=== PATIENT | female | born 1995 | race Caucasian/White ===

== ENCOUNTER 2017-03-13 02:01 | Emergency (ER) | payer OTHER ==
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
--- NOTE | 2017-03-13 02:37 | ED ORDER SUMMARY ---
..... Patient: JOHNNY SOTO OrderSheet [facility] VisitID: [id number] [address] [place] [address] 22y, F Registration Date/Time: 03/13/2017 ORDER SHEET Weight: 79.3 kg (stated) Allergies: Penicillins GENERAL ORDERS: MEDICATION ORDERS: Zofran ODT PO 4 mg (NOW) (02:35 03/13/2017 William JOY) (2:40 DDavis R.N.) Carafate PO 20 ml (NOW) (02:35 03/13/2017 William JOY) (2:41 DDavis R.N.) IV FLUIDS: ORDER SHEET NOTES: [Electronically signed by Zachary Hdez R.N. (02:45 03/13/2017)] [Electronically signed by Jamison Hayden MD (22:02 03/14/2017)] [Electronically locked/signed by Zachary Hdez R.N. (02:45 03/13/2017)]
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
--- NOTE | 2017-03-13 02:37 | ED ORDER SUMMARY ---
..... Patient: JOHNNY SOTO OrderSheet [facility] VisitID: [id number] [address] [place] [address] 22y, F Registration Date/Time: 03/13/2017 ORDER SHEET Weight: 79.3 kg (stated) Allergies: Penicillins GENERAL ORDERS: MEDICATION ORDERS: Zofran ODT PO 4 mg (NOW) (02:35 03/13/2017 William JOY) (2:40 DDavis R.N.) Carafate PO 20 ml (NOW) (02:35 03/13/2017 William JOY) (2:41 DDavis R.N.) IV FLUIDS: ORDER SHEET NOTES: [Electronically signed by Zachary Hdez R.N. (02:45 03/13/2017)] [Electronically signed by Jamison Hayden MD (22:02 03/14/2017)] [Electronically locked/signed by Zachary Hdez R.N. (02:45 03/13/2017)]
--- NOTE | 2017-03-14 22:02 | ED MAR SUMMARY ---
..... Medication Administration Record [facility] [address] [place] [address] Patient: JOHNNY SOTO Visit ID: [id number] 22y, F Weight: 79.3 kg Height/Length: 69 in BMI: 25.8 ALLERGIES: Penicillins Given 02:40 03/13/2017 Zachary Hdez REricaN. Medication Administered: ZOFRAN ODT [PO] (ONDANSETRON), Dose: 4 mg Oral Disintegrating Tablets PO. Medication Ordered: Zofran ODT PO 4 mg (NOW). Given 02:41 03/13/2017 Zachary Hdez, REricaN. Medication Administered: CARAFATE [PO] (SUCRALFATE), Dose: 2 gm Oral Suspension PO. Medication Ordered: Carafate PO 20 ml (NOW).
--- NOTE | 2017-03-14 22:02 | ED MED RECONCILIATION SUMMARY ---
Patient: JOHNNY SOTO Medication Reconciliation Report [facility] VisitID: [id number] [address] [place] [address] 22y, F Registration Date/Time: 03/13/2017 Weight: 79.3 kg Height/Length: 69 in. BMI: 25.8 ALLERGIES: Penicillins The patient's Home Medications are listed below: THE FOLLOWING MEDICATIONS NEED TO BE RECONCILED: Vitamins Oral Unknown "iron medicine" The source(s) of the original Home Medication information: Not obtained. The following Medications were given to the patient in the Emergency Department: Zofran ODT [PO] PO 4 mg, administered: 03/13/2017 2:40:00 AM Carafate [PO] PO 2 gm, administered: 03/13/2017 2:41:00 AM The following Medications were prescribed to the patient: Zofran (orally disintegrating tablets) 4 mg: take 1 orally every 6 hours as needed for nausea. Dispense five (5). No refill. -- Jamison Hayden MD Carafate 1 gm tablets: take 1 orally four times daily (1 hour before meals and at bedtime). Dispense sixty (60). No refills. Substitution is permissible. -- Jamison Hayden MD
--- NOTE | 2017-03-14 22:02 | ED MED RECONCILIATION SUMMARY ---
Patient: JOHNNY SOTO Medication Reconciliation Report [facility] VisitID: [id number] [address] [place] [address] 22y, F Registration Date/Time: 03/13/2017 Weight: 79.3 kg Height/Length: 69 in. BMI: 25.8 ALLERGIES: Penicillins The patient's Home Medications are listed below: THE FOLLOWING MEDICATIONS NEED TO BE RECONCILED: Vitamins Oral Unknown "iron medicine" The source(s) of the original Home Medication information: Not obtained. The following Medications were given to the patient in the Emergency Department: Zofran ODT [PO] PO 4 mg, administered: 03/13/2017 2:40:00 AM Carafate [PO] PO 2 gm, administered: 03/13/2017 2:41:00 AM The following Medications were prescribed to the patient: Zofran (orally disintegrating tablets) 4 mg: take 1 orally every 6 hours as needed for nausea. Dispense five (5). No refill. -- Jamison Hayden MD Carafate 1 gm tablets: take 1 orally four times daily (1 hour before meals and at bedtime). Dispense sixty (60). No refills. Substitution is permissible. -- Jamison Hayden MD
--- NOTE | 2017-03-14 22:02 | ED MAR SUMMARY ---
..... Medication Administration Record [facility] [address] [place] [address] Patient: JOHNNY SOTO Visit ID: [id number] 22y, F Weight: 79.3 kg Height/Length: 69 in BMI: 25.8 ALLERGIES: Penicillins Given 02:40 03/13/2017 Zachary Hdez REricaN. Medication Administered: ZOFRAN ODT [PO] (ONDANSETRON), Dose: 4 mg Oral Disintegrating Tablets PO. Medication Ordered: Zofran ODT PO 4 mg (NOW). Given 02:41 03/13/2017 Zachary Hdez, REricaN. Medication Administered: CARAFATE [PO] (SUCRALFATE), Dose: 2 gm Oral Suspension PO. Medication Ordered: Carafate PO 20 ml (NOW).
--- NOTE | 2017-03-14 22:02 | ED DISCHARGE INSTRUCTIONS ---
Patient: JOHNNY SOTO General Instructions [facility] VisitID: [id number] [place] [address] 22y, F Registration Date/Time: 03/13/2017 Acute and chronic esophagitis associated with gastro-esophageal reflux disease (GERD). INSTRUCTIONS Avoid alcohol and NSAIDS. Examples of NSAIDS include aspirin, ibuprofen (Advil) and naproxen (Aleve). Avoid spicy foods. Other diet: no caffeine. Warnings: Further evaluation is necessary. GENERAL WARNINGS: Return or contact your physician immediately if your condition worsens or changes unexpectedly, if not improving as expected, or if other problems arise. Prescription Medications: Zofran (orally disintegrating tablets) 4 mg: take 1 orally every 6 hours as needed for nausea. Dispense five (5). No refill. Carafate 1 gm tablets: take 1 orally four times daily (1 hour before meals and at bedtime). Dispense sixty (60). No refills. Substitution is permissible. Follow-up: Follow up with your doctor in one week. Call for an appointment. Understanding of the discharge instructions verbalized by patient. Discharge instructions reviewed with and understanding was verbalized by diagnostic technician. ADDITIONAL INFORMATION GERD (Adult) The esophagus is a tube that carries food from the mouth to the stomach. A valve at the lower end of the esophagus prevents stomach acid from flowing upward. If this valve does not work properly, acid from the stomach enters the esophagus. If this occurs over and over, the acid will injure the lining of the esophagus. This condition is called GERD (gastroesophageal reflux disease) or acid reflux. When stomach acid flows upward into the esophagus, it causes burning, pressure or sharp pain in the upper abdomen or mid to lower chest. The pain can spread to the neck, back, or shoulder, similar to heart pain (angina). There may be belching, an acid taste in the back of the throat, chronic cough, or sore throat or hoarseness. GERD symptoms often occur during the day after a big meal, but it can also occur at night when lying down. Smoking,as well as drinking alcohol, increases the risk of GERD. GERD is a chronic condition. Once it begins, it is often lifelong. Treatment includes changes in eating habits and the use of acid camille medications to decrease the amount of acid in the stomach. Symptoms often improve with treatment, but if treatment is stopped, the symptoms usually return after a few months. So most persons with GERD will need to continue treatment. Home Care: Take the prescribed acid camille medication for the full course of treatment even if you begin to feel better sooner. This medication can take up to several days to fully control your symptoms. If you cant afford the prescribed medication, you can try [id number] acid blockers, such as Pepcid AC, Tagamet, Zantac, or Aciphex. If these do not relieve your symptoms, a stronger acid-camille can be tried, such as Prilosec OTC. You can use antacids, such as Tums, Rolaids, Mylanta, or Maalox, for pain. This will be useful the first few days after starting acid blockers when the blockers havent started working yet. Follow the directions on the label. Liquid antacids may work better than tablets. Note that antacids can interfere with absorption of certain medications. Specifically, do not take Tagamet (cimetidine), Zantac (ranitidine), or Carafate (sucralfate) within 1 hour of taking an antacid. Talk with your pharmacist if you have any questions. Limit or avoid fatty, fried, and spicy foods, as well as coffee, chocolate, mint, and foods with high acid content such as tomatoes and citrus fruit and juices (orange, grapefruit, lemon). Avoid alcohol and smoking. Dont eat large meals, especially at night. Frequent, smaller meals are best. Do not lie down right after eating. And dont eat anything 3 hours before going to bed. If you are overweight, losing weight will reduce symptoms. Women should not wear corsets or girdles because this increases pressure on the stomach and worsens reflux. If your symptoms occur during sleep, use a foam wedge to elevate your upper body (not just your head.) Or, place 4" blocks under the head of your bed. Follow Up with your doctor or as advised by our staff. Further testing may be needed. If you do not begin to improve over the next 4 days, contact your doctor. If you had an x-ray, CT scan, or ECG (electrocardiogram), it will be reviewed by a specialist. Youll be notified of any new findings that affect your care. Get Prompt Medical Attention if any of the following occur: Stomach pain gets worse or moves to the lower right abdomen (appendix area) Chest pain appears or gets worse, or spreads to the back, neck, shoulder, or arm Frequent vomiting (cant keep down liquids) Blood in the stool or vomit (red or black in color) Feeling weak or dizzy, fainting, or trouble breathing Fever of 100.4F (38C) or higher, or as directed by your healthcare provider [place] Diet A bland diet is used for patients with an upset stomach. It consists of foods that are mild and easy to digest. It is better to eat small frequent meals rather than three large meals a day. BEVERAGES OK: Fruit juices, non-caffeinated teas and coffee, non-carbonated oneill AVOID: Carbonated beverage, caffeinated tea and coffee, all alcoholic beverages BREAD OK: Refined white, wheat or rye bread, phil or soda crackers, Leslye toast, plain rolls, bagels AVOID: Whole-grain bread CEREAL OK: Refined cereals: cooked or ready to eat AVOID: Whole grain cereals and granola, or those containing bran, seeds or nuts DESSERTS OK: Peanut butter and all others except those to "avoid" AVOID: Chocolate, cocoa, coconut, popcorn, nuts, seeds, jam, marmalade FRUITS OK: Canned, cooked, frozen or fresh fruits without seeds or tough skin AVOID: Olives, skin and seeds of fruit MEATS OK: All fresh or preserved meat, fish and fowl AVOID: Any that are prepared with those spices to "avoid" CHEESE & EGGS OK: Eggs, cottage cheese, cream cheese, other cheeses AVOID: All cheeses made with those spices to "avoid" POTATOES & PASTA OK: Potato, rice, macaroni, noodles, spaghetti AVOID: None SOUPS OK: All soups without heavy seasoning AVOID: Soups made with those spices to "avoid" VEGETABLES OK: Canned, cooked, fresh or frozen mildly flavored vegetables without seeds, skins or coarse fiber AVOID: Vegetables prepared with those spices to "avoid"; skin and seeds of vegetables and those with coarse fiber SPICES OK: Salt, lemon and poarch juice, vinegar, all extracts, hansa, cinnamon, thyme, mace, allspice, paprika AVOID: [place] powder, cloves, pepper, seed spices, garlic, gravy pickles, highly seasoned salad dressings Ondansetron Oral disintegrating tablet What is this medicine? ONDANSETRON (on TANGELA se ross) is used to treat nausea and vomiting caused by chemotherapy. It is also used to prevent or treat nausea and vomiting after surgery. How should I use this medicine? These tablets are made to dissolve in the mouth. Do not try to push the tablet through the foil backing. With dry hands, peel away the foil backing and gently remove the tablet. Place the tablet in the mouth and allow it to dissolve, then swallow. While you may take these tablets with water, it is not necessary to do so. Talk to your director oncology regarding the use of this medicine in children. Special care may be needed. What side effects may I notice from receiving this medicine? Side effects that you should report to your doctor or health assurance services manager health care as soon as possible: allergic reactions like skin rash, itching or hives, swelling of the face, lips, or tongue breathing problems dizziness fast or irregular heartbeat feeling faint or lightheaded, falls fever and chills swelling of the hands and feet tightness in the chest Side effects that usually do not require medical attention (report to your doctor or health assurance services manager health care if they continue or are bothersome): constipation or diarrhea headache What may interact with this medicine? Do not take this medicine with any of the following medications: -apomorphine -cisapride -dofetilide -dronedarone -pimozide -thioridazine -ziprasidone This medicine may also interact with the following medications: -carbamazepine -phenytoin -rifampicin -tramadol -other medicines that prolong the QT interval (cause an abnormal heart rhythm) What if I miss a dose? If you miss a dose, take it as soon as you can. If it is almost time for your next dose, take only that dose. Do not take double or extra doses. Where should I keep my medicine? Keep out of the reach of children. Store between 2 and 30 degrees C (36 and 86 degrees F). Throw away any unused medicine after the expiration date. What should I tell my health care provider before I take this medicine? They need to know if you have any of these conditions: heart disease history of irregular heartbeat liver disease low levels of magnesium or potassium in the blood an unusual or allergic reaction to ondansetron, granisetron, other medicines, foods, dyes, or preservatives or trying to get breast-feeding What should I watch for while using this medicine? Check with your doctor or health assurance services manager health care as soon as you can if you have any sign of an allergic reaction. You have been given the following additional information: GERD (Adult) Diet, [place] (Adult) Ondansetron Oral disintegrating tablet (Electronically signed by Jamison Hayden MD 03/14/2017 22:02)
--- NOTE | 2017-03-14 22:02 | ED DISCHARGE INSTRUCTIONS ---
Patient: JOHNNY SOTO General Instructions [facility] VisitID: [id number] [place] [address] 22y, F Registration Date/Time: 03/13/2017 Acute and chronic esophagitis associated with gastro-esophageal reflux disease (GERD). INSTRUCTIONS Avoid alcohol and NSAIDS. Examples of NSAIDS include aspirin, ibuprofen (Advil) and naproxen (Aleve). Avoid spicy foods. Other diet: no caffeine. Warnings: Further evaluation is necessary. GENERAL WARNINGS: Return or contact your physician immediately if your condition worsens or changes unexpectedly, if not improving as expected, or if other problems arise. Prescription Medications: Zofran (orally disintegrating tablets) 4 mg: take 1 orally every 6 hours as needed for nausea. Dispense five (5). No refill. Carafate 1 gm tablets: take 1 orally four times daily (1 hour before meals and at bedtime). Dispense sixty (60). No refills. Substitution is permissible. Follow-up: Follow up with your doctor in one week. Call for an appointment. Understanding of the discharge instructions verbalized by patient. Discharge instructions reviewed with and understanding was verbalized by echocardiograph tech. ADDITIONAL INFORMATION GERD (Adult) The esophagus is a tube that carries food from the mouth to the stomach. A valve at the lower end of the esophagus prevents stomach acid from flowing upward. If this valve does not work properly, acid from the stomach enters the esophagus. If this occurs over and over, the acid will injure the lining of the esophagus. This condition is called GERD (gastroesophageal reflux disease) or acid reflux. When stomach acid flows upward into the esophagus, it causes burning, pressure or sharp pain in the upper abdomen or mid to lower chest. The pain can spread to the neck, back, or shoulder, similar to heart pain (angina). There may be belching, an acid taste in the back of the throat, chronic cough, or sore throat or hoarseness. GERD symptoms often occur during the day after a big meal, but it can also occur at night when lying down. Smoking,as well as drinking alcohol, increases the risk of GERD. GERD is a chronic condition. Once it begins, it is often lifelong. Treatment includes changes in eating habits and the use of acid camille medications to decrease the amount of acid in the stomach. Symptoms often improve with treatment, but if treatment is stopped, the symptoms usually return after a few months. So most persons with GERD will need to continue treatment. Home Care: Take the prescribed acid camille medication for the full course of treatment even if you begin to feel better sooner. This medication can take up to several days to fully control your symptoms. If you cant afford the prescribed medication, you can try [id number] acid blockers, such as Pepcid AC, Tagamet, Zantac, or Aciphex. If these do not relieve your symptoms, a stronger acid-camille can be tried, such as Prilosec OTC. You can use antacids, such as Tums, Rolaids, Mylanta, or Maalox, for pain. This will be useful the first few days after starting acid blockers when the blockers havent started working yet. Follow the directions on the label. Liquid antacids may work better than tablets. Note that antacids can interfere with absorption of certain medications. Specifically, do not take Tagamet (cimetidine), Zantac (ranitidine), or Carafate (sucralfate) within 1 hour of taking an antacid. Talk with your pharmacist if you have any questions. Limit or avoid fatty, fried, and spicy foods, as well as coffee, chocolate, mint, and foods with high acid content such as tomatoes and citrus fruit and juices (orange, grapefruit, lemon). Avoid alcohol and smoking. Dont eat large meals, especially at night. Frequent, smaller meals are best. Do not lie down right after eating. And dont eat anything 3 hours before going to bed. If you are overweight, losing weight will reduce symptoms. Women should not wear corsets or girdles because this increases pressure on the stomach and worsens reflux. If your symptoms occur during sleep, use a foam wedge to elevate your upper body (not just your head.) Or, place 4" blocks under the head of your bed. Follow Up with your doctor or as advised by our staff. Further testing may be needed. If you do not begin to improve over the next 4 days, contact your doctor. If you had an x-ray, CT scan, or ECG (electrocardiogram), it will be reviewed by a specialist. Youll be notified of any new findings that affect your care. Get Prompt Medical Attention if any of the following occur: Stomach pain gets worse or moves to the lower right abdomen (appendix area) Chest pain appears or gets worse, or spreads to the back, neck, shoulder, or arm Frequent vomiting (cant keep down liquids) Blood in the stool or vomit (red or black in color) Feeling weak or dizzy, fainting, or trouble breathing Fever of 100.4F (38C) or higher, or as directed by your healthcare provider [facility] Diet A bland diet is used for patients with an upset stomach. It consists of foods that are mild and easy to digest. It is better to eat small frequent meals rather than three large meals a day. BEVERAGES OK: Fruit juices, non-caffeinated teas and coffee, non-carbonated oneill AVOID: Carbonated beverage, caffeinated tea and coffee, all alcoholic beverages BREAD OK: Refined white, wheat or rye bread, phil or soda crackers, Leslye toast, plain rolls, bagels AVOID: Whole-grain bread CEREAL OK: Refined cereals: cooked or ready to eat AVOID: Whole grain cereals and granola, or those containing bran, seeds or nuts DESSERTS OK: Peanut butter and all others except those to "avoid" AVOID: Chocolate, cocoa, coconut, popcorn, nuts, seeds, jam, marmalade FRUITS OK: Canned, cooked, frozen or fresh fruits without seeds or tough skin AVOID: Olives, skin and seeds of fruit MEATS OK: All fresh or preserved meat, fish and fowl AVOID: Any that are prepared with those spices to "avoid" CHEESE & EGGS OK: Eggs, cottage cheese, cream cheese, other cheeses AVOID: All cheeses made with those spices to "avoid" POTATOES & PASTA OK: Potato, rice, macaroni, noodles, spaghetti AVOID: None SOUPS OK: All soups without heavy seasoning AVOID: Soups made with those spices to "avoid" VEGETABLES OK: Canned, cooked, fresh or frozen mildly flavored vegetables without seeds, skins or coarse fiber AVOID: Vegetables prepared with those spices to "avoid"; skin and seeds of vegetables and those with coarse fiber SPICES OK: Salt, lemon and [place] juice, vinegar, all extracts, hansa, cinnamon, thyme, mace, allspice, paprika AVOID: [place] powder, cloves, pepper, seed spices, garlic, gravy pickles, highly seasoned salad dressings Ondansetron Oral disintegrating tablet What is this medicine? ONDANSETRON (on TANGELA se ross) is used to treat nausea and vomiting caused by chemotherapy. It is also used to prevent or treat nausea and vomiting after surgery. How should I use this medicine? These tablets are made to dissolve in the mouth. Do not try to push the tablet through the foil backing. With dry hands, peel away the foil backing and gently remove the tablet. Place the tablet in the mouth and allow it to dissolve, then swallow. While you may take these tablets with water, it is not necessary to do so. Talk to your medical assistant cardiology regarding the use of this medicine in children. Special care may be needed. What side effects may I notice from receiving this medicine? Side effects that you should report to your doctor or health ostomy care nurse as soon as possible: allergic reactions like skin rash, itching or hives, swelling of the face, lips, or tongue breathing problems dizziness fast or irregular heartbeat feeling faint or lightheaded, falls fever and chills swelling of the hands and feet tightness in the chest Side effects that usually do not require medical attention (report to your doctor or health ostomy care nurse if they continue or are bothersome): constipation or diarrhea headache What may interact with this medicine? Do not take this medicine with any of the following medications: -apomorphine -cisapride -dofetilide -dronedarone -pimozide -thioridazine -ziprasidone This medicine may also interact with the following medications: -carbamazepine -phenytoin -rifampicin -tramadol -other medicines that prolong the QT interval (cause an abnormal heart rhythm) What if I miss a dose? If you miss a dose, take it as soon as you can. If it is almost time for your next dose, take only that dose. Do not take double or extra doses. Where should I keep my medicine? Keep out of the reach of children. Store between 2 and 30 degrees C (36 and 86 degrees F). Throw away any unused medicine after the expiration date. What should I tell my health care provider before I take this medicine? They need to know if you have any of these conditions: heart disease history of irregular heartbeat liver disease low levels of magnesium or potassium in the blood an unusual or allergic reaction to ondansetron, granisetron, other medicines, foods, dyes, or preservatives or trying to get breast-feeding What should I watch for while using this medicine? Check with your doctor or health ostomy care nurse as soon as you can if you have any sign of an allergic reaction. You have been given the following additional information: GERD (Adult) Diet, [facility] (Adult) Ondansetron Oral disintegrating tablet (Electronically signed by Jamison Hayden MD 03/14/2017 22:02)
== END 2017-03-13 02:43 | disposition home or self-care (01) ==
LOC: ED SRH 02:01
DX: O99.613 Diseases of the digestive system complicating pregnancy, third trimester (principal); K21.0 Gastro-esophageal reflux disease with esophagitis; Z3A.39 39 weeks gestation of pregnancy; Z88.0 Allergy status to penicillin